=== PATIENT | female | born 2000 | race African-American/Black ===

== ENCOUNTER 2018-02-03 10:01 | Outpatient (CLI) | payer OTHER ==
--- NOTE | 2018-02-03 14:13 | ULT ---
OB ULTRASOUND: Date: 02/03/18 HISTORY: Size and dates. FINDINGS: Real-time imaging of the pelvis shows a single, viable intrauterine , which is in a breech p resentation. The placenta is posterior and fundal in location. heart rate is 133 beats/minute. Amniotic fluid appears adequate for this stage of . The amniotic fluid index is 12.1. Review of anatomy shows no abnormalities detected. Head, cerebellum, four chamber heart, stomac h, kidneys, cord insertion, bladder, spine, and three vessel cord are all identified. measurements are as follows: BPD: 5.9 cm, 24 weeks/1 day HC: 22.3 cm, 24 weeks/2 days AC: 20.1 cm, 24 weeks/5 days FL: 4.4 cm, 24 weeks/4 days IMPRESSION: 1. Single, viable intrauterine in breech presentation. Overall measurements corresponding to a gestational age of 24 weeks/1 days. Estimated date of delivery is 05/25/18. 2. Placenta which is more posterior and fundal in location. POS: [facility]
== END 2018-02-03 10:02 | disposition home or self-care (01) ==
LOC: NAV ULT 10:01
PROVIDERS: ATTEND Family Medicine
DX: Z34.82 Encounter for supervision of other normal pregnancy, second trimester (principal); Z3A.24 24 weeks gestation of pregnancy
CPT/HCPCS: 76805

== ENCOUNTER 2019-11-14 12:39 | Emergency (ER) | payer OTHER ==
[2019-11-16 12:28] LABS: SARS-CoV-2 MS2 Positive; SARS-CoV-2 N Gene Negative; SARS-CoV-2 S Gene Negative; SARS-CoV-2 by NAA Not Detected (NotDetected); SARS-CoV-2 orf1ab Negative
== END 2019-11-14 13:45 | disposition home or self-care (01) ==
LOC: NAV ERS 12:39
DX: R09.89 Other specified symptoms and signs involving the circulatory and respiratory systems (principal); Z20.828 Contact with and (suspected) exposure to other viral communicable diseases
CPT/HCPCS: 87635; 99283; U0003

== ENCOUNTER 2023-06-21 19:34 | Emergency (ER) | payer OTHER ==
[2023-06-21 19:55] LABS: Pregnancy Test - Urine (BHCG) POSITIVE (Negative); Pregu Control Background? CLEAR/WHITE (CLR/WHITE); Pregu Control Bar Appear? YES (CONTROL BAR); Specific Gravity 1.015 (1.002-1.036)
== END 2023-06-21 20:07 | disposition home or self-care (01) ==
LOC: NAV ERS 19:34
DX: Z32.01 Encounter for pregnancy test, result positive (principal); R51.9 Headache, unspecified; F17.290 Nicotine dependence, other tobacco product, uncomplicated
CPT/HCPCS: 81025; 99284